=== PATIENT | male | born 1940 | race Caucasian/White ===

== ENCOUNTER 2022-01-23 10:33 | Emergency (ER) | payer MEDICARE ==
[2022-01-23] MEDS ORDERED: ULTRAM50 MG PO (15:10)
== END 2022-01-23 15:28 | disposition home or self-care (01) ==
LOC: FER 10:33
DX: S82.831A Other fracture of upper and lower end of right fibula, initial encounter for closed fracture (principal); I10 Essential (primary) hypertension; Z87.891 Personal history of nicotine dependence; Z79.82 Long term (current) use of aspirin; Z79.899 Other long term (current) drug therapy; W18.40XA Slipping, tripping and stumbling without falling, unspecified, initial encounter
CPT/HCPCS: 73564; 73590; 93971